=== PATIENT | female | born 1980 | race Caucasian/White ===

== ENCOUNTER 2022-06-23 08:37 | Emergency (ER) | payer MEDICAID, SELFPAY ==
[2022-06-23 08:48] VITALS: BP 100/64; PULSE 98; RESP 18; TEMP 36.6; O2SAT 97; BMI 23.5
--- NOTE | 2022-06-23 08:59 | ED.GENADULT ---
HPI - General Adult General Time Seen by Provider: 09:00 Date Seen: 06/23/22 Chief complaint: Dental/Oral/Mouth Injury/Pain Stated complaint: Sore throat Time Seen by Provider: 06/23/22 08:54 Source: patient Mode of arrival: ambulatory Limitations: no limitations History of Present Illness HPI narrative: Smiley is a 41-year-old female past medical history of migraines who presents emerged department with a sore throat difficulty swallowing. patient states that over the last 2 days she has had increased throat pain, she knows redness and swelling in the back of her throat, also exudate. She has a typical migraine bilateral temporal behind her eyes, associated nausea but no vomiting, she took her usual migraine medication with no relief, she denies any fevers or chills, her nephew had strep throat, but she was not around him. She did have strep when she was young child. She denies any cough, chest pain or shortness of breath, she denies any abdominal complaints, she is eating and drinking normally but difficulty with swallowing, she has not had any drooling. she denies any fatigue, she was trying to go to work this morning when came to the emergency department. she does smoke 3-4 cigarettes per day Related Data Previous Rx's Medication Instructions Recorded amoxicillin 875 mg tablet 875 mg PO BID 10 days #20 tabs 06/23/22 Allergies Allergy/AdvReac Type Severity Reaction Status Date / Time Sulfa (Sulfonamide Allergy Verified 06/23/22 08:47 Antibiotics) Review of Systems Status of ROS: Reports: 10 or more systems reviewed and unremarkable except as noted in History and below PFSH PFSH Social History Smoking Status: Never smoker Do you use any of these nicotine containing products: None Second hand tobacco smoke exposure: No How often do you have a drink containing alcohol: never How often do you have six or more drinks on one occasion: Never AUDIT-C Alcohol total score: 0 Non-prescribed substance use: denies use service: No Exam Narrative: Exam Narrative: general: no obvious distress sitting comfortably HEENT: tympanic membranes within normal limits oropharynx shows post or pharyngeal erythema, swollen tonsillar pillars, bilateral exudate, no abscess. bilateral submandibular adenopathy no meningeal signs lungs: clear to auscultation bilaterally heart: normal sinus rhythm S1-S2 muscle skeletal: moving upper lower extremities with no difficulty abdomen: soft nontender neuro: alert awake and oriented x3 Const: Vital Signs, click to edit/add: Vital Signs - 24 hr 06/23/22 08:48 Temperature 98 F Pulse Rate [Pulse Oximeter] 98 Respiratory Rate 18 Blood Pressure [Ri ght Upper Arm] 100/64 Pulse Oximetry 97 Oxygen Delivery Me thod Room Air Course Reevaluation(s) Reevaluation #1: 9:00 AM: AIDET performed. vitals are normal, workup will include COVID/influenza/ RSV swab will also obtain rapid strep PCR, 60 mg IM Toradol and 40 mg oral prednisone for her pain. Reevaluation #2: Patient updated on her positive rapid strep results, she is feeling better after above care given, plan would be to discharge prescription for amoxicillin 875 mg b.i.d. over the next 10 days, she should continue with Motrin 600-800 mg every 4-6 hours as needed for pain, follow-up with primary care provider as needed over the next 7-10 days, return if worsening symptoms. Time: 11:22 Vital Signs Vital signs: Initial Vital Signs Temperature 98 F 06/23/22 08:48 Temperature Source Temporal Artery Scan 06/23/22 08:48 Pulse Rate 98 06/23/22 08:48 Pulse Rhythm 06/23/22 08:48 Respiratory Rate 18 06/23/22 08:48 Blood Pressure 100/64 06/23/22 08:48 Blood Pressure Mean 76 06/23/22 08:48 Blood Pressure Position Supine 06/23/22 08:48 Pulse Oximetry 97 06/23/22 08:48 Oxygen Delivery Method 06/23/22 08:48 Vital Signs Temperature 98 F 06/23/22 08:48 Pulse Rate 98 06/23/22 08:48 Respiratory Rate 18 06/23/22 08:48 Blood Pressure 100/64 06/23/22 08:48 Pulse Oximetry 97 06/23/22 08:48 Oxygen Delivery Method 06/23/22 08:48 Temperature 98 F 06/23/22 08:48 Pulse Rate 98 06/23/22 08:48 Respiratory Rate 18 06/23/22 08:48 Blood Pressure 100/64 06/23/22 08:48 Pulse Oximetry 97 06/23/22 08:48 Oxygen Delivery Method 06/23/22 08:48 Medical Decision Making Lab Data Labs: Lab Results 06/23/22 06/23/22 06/23/22 Range/Units 09:25 09:25 09:25 SARS-CoV-2 (PCR) Negative SARS-CoV-2 (Negative) Influenza Type A (PCR) Negative PCR FLU A (Negative) Influenza Type B (PCR) Negative PCR FLU B (Negative) RSV (PCR) Negative PCR RSV (Negative) Group A Strep Rapid Cancelled Group A Strep DNA DETECTED A (Not Detectd) Discharge Plan Discharge Clinical Impression: Strep pharyngitis Patient Disposition: Home, Self-Care Condition: Improved Instructions: Strep Throat (ED) Additional Instructions: Amoxicillin 875 mg twice daily over the next 10 days, to continue with 600-800 mg Motrin every 4-6 hours as needed for pain, follow-up with primary care provider over the next 7-10 days, return if worsening symptoms. Activity Level: No Restrictions Prescriptions: New amoxicillin 875 mg tablet 875 mg PO BID 10 Days Qty: 20 0RF Follow Up/Referrals: Trisha Kuo CNP [Primary Care Provider] - Stand Alone Forms: [employer] Info Instructions
[2022-06-23] MEDS: predniSONE 20 MG TABLET 40 MG PO (09:16)
[2022-06-23] MEDS: KETOROLAC 30 MG/ML inj 60 MG IM (09:16)
--- OUTSIDE RECORDS SUMMARY | 2022-06-23 10:11 | XMS_ITS | Encounter Summary ---
:1980 Author Organization [facility] Address [address] [place] [address] Care Team Providers Name Role Phone Cleopatra Veliz M.D. Primary Care Provider + [phone] Reason for Visit Reason Comments COVID Nurse Line Encounter Details Date Type Department Care Team Description 12/03/2019 Clinical Communication Division of Gilda Lin Nurse Line [facility] Internal Rowdy, Rowdy.S.NGalileo, Medicine, Jose De León, C.C.T.CGalileo [address] [address] [place] [address] [place], [place] (Work) [phone] Social History Tobacco Use Types Packs/Day Years Used Date Smoking Tobacco: Every Day Sex Assigned at Date Recorded Not on file documented as of this encounter Miscellaneous Notes Telephone Encounter - Gilda Lin R.N., C.C.T.C. - 12/03/2019 2:07 PM CDT COVID-19 Nurse Line Screening ASSESSMENT COVID 19 Screening Have you had close contact with a person who has a LABORATORY CONFIRMED case of COVID-19?: No - Continue screening. In the last 48 hours have you had any of the following symptoms?: New myalgias (muscle aches)(Leg cramps, chest heaviness) Do you have any urgent symptoms?: None- Patient meets criteria for testing. PLAN Endpoint recommendation: Screening positive, testing indicated, advised to be swabbed for COVID-19, sent to [place], [place] Care Points provided: STANDARD PRECAUTIONS FOR ALL PATIENTS: Wash hands often with soap and water for at least 20 seconds, especially after blowing your nose, coughing, sneezing, or having been in a public place. If soap and water aren't available, use a hand peoplesoft financial developer that contains at least 60% alcohol. Avoid close contact with anyone who may be exhibiting respiratory symptoms such as coughing and sneezing. Avoid touching your eyes, nose and mouth. Clean and disinfect frequently touched surfaces daily. Cover your mouth and nose with a cloth face cover when around others or in public. The cloth face cover is not a substitute for social distancing. Continue to keep about 6 feet between yourself andothers. Stay home as much as possible (only going out for essential items or medical care). Educational Resource: https://www.cdc.gov/coronavirus/2019-ncov/qgictlr-calyztr-ynrt/index.html RECOMMENDATIONS TESTING CRITERIA IS MET: Stay home except to get medical care. Avoid public areas(do not go to work, school, etc). Avoid public transportation, riding sharing (if possible) or taxis. Stay in a specific sick room if possible and away from other people and pets in your home. Use a s eparate bathroom if possible. Wear a cloth face covering, over your nose and mouth if you must be around other people even at home). Contact employer/occupational health department to notify them that they are being tested. If patient is living with a high risk family member, seek medical advice from their primary care provider. *High risk includes family member with heart of lung disease (e.g. asthma, COPD), immunosuppression (e.g. cancer, HIV/AIDS), women, or 65 years and older. Go to [facility] emergency department if any of the following occur: 1) New shortness of breath at rest, 2) Pain, pressure or tightness unrelated to coughing in the chest, jaw or arm, 3) Newly confused or unable to stay alert and awake. Notify primary care provider if any new or worsening symptoms. Education Resources: https://www.cdc.gov/coronavirus/2019-ncov/xp-zbz-apf-sick/kkacu-gssi-zkzg.html SELF CARE FOR ALL PATIENTS: In these stressful times, it is important to take care of your mental health as well as your physical health. Take breaks from watching, reading, or listening to news stories. It can be upsetting to hear about the crisis and see images repeatedly. Make time to unwind. Try to do some other activities you enjoy. Connect with others. Talk with people you trust about your concerns and how you are feeling. Be creative in keeping connected with loved ones. Develop a plan for your day. Shower, get dressed, have a routine. Structure in productive tasks as well as leisure time. Try healthy coping strategies such as meditation, relaxation, exercise, healthy eating habits, and avoid alcohol and drugs. Maintain a consistent sleep schedule. Keep sleep area and work areas separate. Education: patient/caregiver Patient/caregiver able to teach back Patient agreeable to plan of care: Yes The following references were used: [facility] novel coronavirus (COVID- 19) resources Evelio Telephone Triage Protocols for Nurses Nursing judgement documented in this encounter Plan of Treatment Not on filedocumented as of this encounter Visit Diagnoses Not on filedocumented in this encounter Care Teams Banquet Coordinator Relationship Specialty Start Date End Date Cleopatra Veliz M.D. PCP - General 02/04/18 09/17/[address] [address] documented as of this encounter
--- OUTSIDE RECORDS SUMMARY | 2022-06-23 10:11 | XMS_ITS | Encounter Summary ---
:1980 Author Organization [facility] Address [address] [place] [address] Care Team Providers Name Role Phone Elsewhere, Pcp Primary Care Provider Unavailable Reason for Referral Outpatient (Routine) - Authorized Specialty Diagnoses / Procedures Referred By Contact Refer red To Contact Diagnoses Preplacement Exam Rachel Melchor P.A.-C. [facility] Procedures OCC Drug screening [address] [place] [address] Referral ID Status Reason Start Date Expiration Date Visits V isits Requested Authorized [id number] Authorized 04/21/2022 04/21/2023 1 1 Reason for Visit Reason Comments Drug Screen Nurse Visit Appointment Request (Routine) - Closed Specialty Diagnoses / Procedures Referred By Contact Refer red To Contact Occupational Medicine Referral ID Status Reason Start Date Expiration Date Visits Requ ested Visits Authorized [id number] Closed 04/19/2022 04/19/2023 1 Encounter Details Date Type Department Care Team Description 04/21/2022 Clinical Support Department of [facility], Preplaceme nt Exam Occupational Trisha Be, (Primary Dx) Medicine in [place], [place] [address] [place] [phone] Social History Tobacco Use Types Packs/Day Years Used Date Smoking Tobacco: Every Day Sex Assigned at Date Recorded Not on file documented as of this encounter Plan of Treatment Scheduled Orders Name Type Priority Associated Diagnoses Order S chedule OCC Drug screening Procedures Routine Preplacement Exam Orde red: 04/21/2022 documented as of this encounter Visit Diagnoses Diagnosis Preplacement Exam - Primary documented in this encounter Care Teams Heel Seat Sander Relationship Specialty Start Date End Date Elsewhere, Pcp PCP - General Family Medicine 01/06/21 documented as of this encounter
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
--- OUTSIDE RECORDS SUMMARY | 2022-06-23 10:11 | XMS_ITS | Clinical Summary ---
:1980 Author Organization [facility] Address [address] [place] [address] Care Team Providers Name Role Phone Elsewhere, Pcp Primary Care Provider Unavailable Source Comments Patient records contain information from all sites at [facility]. For routine questions regarding patient records, call [phone] during business hours, M-F 8:00 AM - 5:00 PM Central Time. Record requests for emergency care only can be directed to [phone] at any time.[facility] Encounters Date Type Specialty Care Team Description 04/21/2022 Clinical Support Occupational [place] Sun t Exam Medicine Trisha Be (Primary Dx) L.P.N. from Last 3 Months Family History Medical History Relation Name Comments Lung cancer Grandmother maternal Osteoarthritis Mother Relation Name Status Comments Grandmother maternal Mother Social History Tobacco Use Types Packs/Day Years Used Date Smoking Tobacco: Every Day Sex Assigned at Date Recorded Not on file Last Filed Vital Signs Vital Sign Reading Time Taken Comments Blood Pressure 104/60 08/17/2013 1:32 PM WASTE COLLECTOR Pulse 88 08/17/2013 1:32 PM WASTE COLLECTOR Temperature - - Respiratory Rate 16 08/17/2013 1:32 PM WASTE COLLECTOR Oxygen Saturation - - Inhaled Oxygen Concentration - - Weight 70.6 kg (155 lb 10.3 oz) 08/17/2013 1:32 PM WASTE COLLECTOR Height 167 cm (5' 5.75) 06/06/2012 10:02 AM CDT Body Mass Index 25.31 06/06/2012 10:02 AM CDT Plan of Treatment Health Maintenance Due Date Last Done Comments Cervical Cancer Screening 1980 HIV Screening 1980 Hepatitis B Vaccines (1 of 3 - 1980 3-dose series) Hepatitis C Screening 1980 Lipid (Cholesterol) Screening 1980 Mammogram 1980 COVID-19 Vaccine (#1) 04/29/1981 Pneumococcal vaccine (0-64 years) 1986 (1 - PCV) DTaP,Tdap,and Td Vaccines (1 - 10/28/1999 Tdap) Depression Screening (Annual 08/08/2021 PHQ-2) Influenza Vaccine (#1) 2022 HPV Vaccines Aged Out No longer eligib le based on patient's age to complete this topic Insurance Payer Benefit Plan Subscriber ID Effective Dates Phone Address Type / Group [facility] [facility] [id number] 2021-Presen [phone] [address] Medicaid HMO t 5 [place] [address] Care Teams Teacher Emotionally Impaired Relationship Specialty Start Date End Date Elsewhere, Pcp PCP - General Family Medicine 01/06/21
--- OUTSIDE RECORDS SUMMARY | 2022-06-23 10:11 | XMS_ITS | Encounter Summary ---
:1980 Author Organization [facility] Address [address] [place] [address] Care Team Providers Name Role Phone Octavio Dimas M.D. Primary Care Provider Encounter Details Date Type Department Care Team Description 12/09/2020 Orders Only [facility] PCP [facility] MNT Octavio Dimas S creening Mammogram M.DGalileo Breast Cancer [address] [place] [address] Social History Tobacco Use Types Packs/Day Years Used Date Smoking Tobacco: Every Day Sex Assigned at Date Recorded Not on file documented as of this encounter Plan of Treatment Not on filedocumented as of this encounter Visit Diagnoses Diagnosis Screening Mammogram Breast Cancer documented in this encounter Care Teams Cloth Mercerizer Back Tender Relationship Specialty Start Date End Date Octavio Dimas M.D. PCP - General 09/18/20 01/05/21 [address] [place] [id number] documented as of this encounter
--- OUTSIDE RECORDS SUMMARY | 2022-06-23 10:11 | XMS_ITS | Encounter Summary ---
:1980 Author Organization [facility] Address [address] [place] [address] Care Team Providers Name Role Phone Cleopatra Veliz M.D. Primary Care Provider + [phone] Reason for Visit Reason Comments COVID Nurse Line Encounter Details Date Type Department Care Team Description 12/24/2019 Clinical Express Care Abby Arboleda [place] se Line Communication Online Services in A, R.N. [place] [phone] [place] [address] (Work) [place] [address] Social History Tobacco Use Types Packs/Day Years Used Date Smoking Tobacco: Every Day Sex Assigned at Date Recorded Not on file documented as of this encounter Miscellaneous Notes Telephone Encounter - Abby Arboleda, R.N. - 12/24/2019 5:50 PM CDT COVID-19 Nurse Line Screening ASSESSMENT COVID 19 Screening Have you had close contact with a person who has a LABORATORY CONFIRMED case of COVID-19?: Yes - Continue screening. Is this close contact a household contact?: No- Continue screening In the last 48 hours have you had any of the following symptoms?: New myalgias (muscle aches) Do you have any urgent symptoms?: None- Patient meets criteria for testing. Patient also reports chest tightness, unsure if related to history of smoking. PLAN Endpoint recommendation: Screening positive, testing indicated, advised to be swabbed for COVID-19, sent to [place], [place], Self-isolation, quarantine at home and Home Care Care Points provided: STANDARD PRECAUTIONS FOR ALL PATIENTS: Wash hands often with soap and water for at least 20 seconds, especially after blowing your nose, coughing, sneezing, or having been in a public place. If soap and water aren't available, use a hand clam bed worker that contains at least 60% alcohol. Avoid [...] essential items or medical care). Educational Resource: https://www.cdc.gov/coronavirus/2019-ncov/sdlnirl-cpkynij-opor/index.html RECOMMENDATIONS TESTING CRITERIA IS MET: Stay home [...] or 65 years and older. Go to [facility] emergency department if any of the following occur: 1) New shortness of breath at rest, 2) Pain, pressure or tightness unrelated to coughing in the chest, jaw or arm, 3) Newly confused or unable to stay alert and awake. Notify primary care provider if any new or worsening symptoms. Education Resources: https://www.cdc.gov/coronavirus/2019-ncov/wq-kpm-yjq-sick/vzhae-cuhy-kvkx.html SELF CARE FOR ALL PATIENTS: In these [...] care: Yes The following references were used: [facility] novel coronavirus (COVID- 19) resources CDC web site https://www.cdc.gov/coronavirus/2019-ncov/summary.html Nursing judgement documented in this encounter Plan of Treatment Not on filedocumented as of this encounter Visit Diagnoses Not on filedocumented in this encounter Care Teams Fish Culturist Relationship Specialty Start Date End Date Cleopatra Veliz M.D. PCP - General 02/04/18 09/17/[address] [place] [phone] documented as of this encounter
--- OUTSIDE RECORDS SUMMARY | 2022-06-23 10:11 | XMS_ITS | Encounter Summary ---
:1980 Author Organization [facility] Address [address] [place] [address] Care Team Providers Name Role Phone Cleopatra Veliz M.D. Primary Care Provider + [phone] Reason for Referral Outpatient (Routine) - Closed Specialty Diagnoses / Procedures Referred By Contact Refer red To Contact Family Medicine GABINO Veliz SE, M.D. [address] [place] [phone] Referral ID Status Reason Start Date Expiration Date Visits Requ ested Visits Authorized [id number] Closed 04/10/2020 04/10/2021 1 1 Encounter Details Date Type Department Care Team Description 04/10/2020 Orders Only [facility] Sarita cheatham, Screening Lipid Anna Whelan [address] [place] [phone] (Wo rk) Social History Tobacco Use Types Packs/Day Years Used Date Smoking Tobacco: Every Day Sex Assigned at Date Recorded Not on file documented as of this encounter Plan of Treatment Scheduled Orders Name Type Priority Associated Diagnoses Order S chedule Lipid Panel Lab Routine Screening Lipid Expected: , Expires: 04/10/2023 Scheduled Referrals Name Type Priority Associated Diagnoses Order S chedule Family Medicine Outpatient Referral Routine Expec lázaro: office visit 04/24/2020, (clinic) Expires: 04/10/2023 documented as of this encounter Visit Diagnoses Diagnosis Screening Lipid documented in this encounter Care Teams Receiving Tank Operator Relationship Specialty Start Date End Date Cleopatra Veliz M.D. PCP - General 02/04/18 09/17/[address] [phone] documented as of this encounter
--- OUTSIDE RECORDS SUMMARY | 2022-06-23 10:11 | XMS_ITS | Encounter Summary ---
:1980 Author Organization [facility] Address [address] [place] [address] Care Team Providers Name Role Phone Cloepatra Veliz M.D. Primary Care Provider + [phone] Reason for Visit Reason Onset Date Comments Outpatient COVID-19 Testing Outpatient COVID-19 Testing 12/25/2019 Encounter Details Date Type Department Care Team Description 12/25/2019 External Outreach Department of Lesly Mata Infect ion [facility] Internal Medicine in [facility] C.N.P., Respir ator (Primary [place] D.N.P., M.S.N. Dx) [address] [place] [phone] Social History Tobacco Use Types Packs/Day Years Used Date Smoking Tobacco: Every Day Sex Assigned at Date Recorded Not on file documented as of this encounter Progress Notes Smiley Tran RRyanne - 12/25/2019 9:38 AM CDT Encounter created for the drive-through COVID-19 testing. documented in this encounter Miscellaneous Notes Result Encounter Note - Smiley Mitchell - 12/27/2019 8:29 AM CDT Result Letter sent to patient with negative COVID-19 result. documented in this encounter Plan of Treatment Not on filedocumented as of this encounter Procedures Procedure Name Priority Date/Time Associated Comments Diagnosis SARS CORONAVIRUS 2 Routine 12/25/2019 5:16 PM Res ults for this PCR DETECT, V CDT procedure are in the results section. documented in this encounter Results SARS Coronavirus 2 RNA Detection (12/25/2019 5:16 PM CDT) [facility] Method Time Signature SARS-CoV-2 Swab, 12/26/2019 [facility] Specimen Nasopharynx 10:58 PM Source CDT SARS-CoV-2 Undetected Undetected 12/26/2019 [facility] RNA by PCR 10:58 PM CDT Comment: SARS-CoV-2 RNA absent. This result does not rule out COVID-19 in the patient, as the sensitivity of the test depends o n the timing of the specimen collection and the quality of the specim en. Result should be correlated with patient's history and clinical presentat ion. ----ADDITIONAL INFORMATION---- This test using the stephanie SARS-CoV-2 ass ay ([employer] performed on the stephanie 6800 System has r eceived Emergency Use Authorization (EUA) by the U.S. Food and Drug Administ ration, and is modified from the permit agent's instructions with a bridg ing study. Performance characteristics were verified by [facility] inic in a manner consistent with CLIA requirements. Fact sheets for this Emergency Use Autho rization (EUA) assay can be found at the following links: For Healthcare Providers: https://www.fd a.gov/media/753980/download For Patients: https://www.fda.gov/media/ 239619/download Specimen Anatomical Collection Method Collection Time Receive d Time (Source) Location / / Volume Laterality Varies 12/25/2019 5:16 PM 0 9:29 CDT PM CDT Lesly Mata APRN, C.N.P., D.N.P., M.S.N. LAB MICROBI OLOGY - GENERAL ORDERABLES Performing Organization Address City/State/ZIP Code Phon e Number [facility] [address] [place] [address] [facility] [place] [address] Laboratory Medicine and Pathology [address] MCGRATH documented in this encounter Visit Diagnoses Diagnosis Infection Upper Respiratory - Primary documented in this encounter Additional Health Concerns Infection Onset Date Last Indicated Resolved Time COVID19 Pending 12/25/2019 12/25/2019 12/26/2019 10:58 PM CDT documented as of this encounter Care Teams Post Production Assistant Relationship Specialty Start Date End Date Cleopatra Veliz M.D. PCP - General 02/04/18 09/17/200 [address], [place] [phone] documented as of this encounter
--- OUTSIDE RECORDS SUMMARY | 2022-06-23 10:11 | XMS_ITS | Encounter Summary ---
:1980 Author Organization [facility] Address [address] [place] [address] Care Team Providers Name Role Phone Cleopatra Veliz M.D. Primary Care Provider + [phone] Reason for Visit Reason Onset Date Comments Outpatient COVID-19 Testing 12/03/2019 Encounter Details Date Type Department Care Team Description 12/03/2019 External Outreach Department of Giuseppe Bunch Infectio n [facility] Medicine, D.OGalileo Respiratory (Primary [facility] [id number] [place] [address] Dr Ramos) [place], [place] [address] [address] [place], [place] [phone] (Work) [phone] Social History Tobacco Use Types Packs/Day Years Used Date Smoking Tobacco: Every Day Sex Assigned at Date Recorded Not on file documented as of this encounter Progress Notes Giuseppe Bunch D.O. - 12/03/2019 2:24 PM CDT Encounter created for the drive-through COVID-19 testing. documented in this encounter Plan of Treatment Not on filedocumented as of this encounter Procedures Procedure Name Priority Date/Time Associated Diagnosis Comme nts SARS CORONAVIRUS-2, Routine 12/03/2019 4:38 PM Infection Upper Results for this PCR CDT Respiratory procedure are i n the results section. documented in this encounter Results SARS Coronavirus-2, PCR (12/03/2019 4:38 PM CDT) Patholo gist Method Time Signature SARS Swab, 12/04/2019 [facility] Coronavirus-2 Nasopharynx 11:44 AM Source CDT SARS Undetected Undetected 12/04/2019 [facility] Coronavirus-2 11:44 AM , PCR CDT Comment: SARS-CoV-2 RNA absent. This result does not rule out COVID-19 in the patient, as the sensitivity of the test depends o n the timing of the specimen collection and quality of the specimen. Result should be correlated with patient's history and clinical presentat ion. ----ADDITIONAL INFORMATION---- This test was developed and its performa nce characteristics determined by [facility] in a manner co nsistent with CLIA requirements. Independent review by the U.S. Food and Drug Administration is pending. Visit the CDC website: https://www.cdc.gov/coronavirus/ ?? for the most recent guidelines on Velazquez virus testing. Fact Sheet for Healthcare Providers: (https://www.[employer]/it-mmfil es/ Provider_Fact_Sheet_for_[facility]_COVI D-19.pdf) Fact Sheet for Patients: (https://www.[employer]/it-mmfil es/ Patient_Fact_Sheet_for_COVID-19.pdf) Specimen Anatomical Collection Method Collection Time Receive d Time (Source) Location / / Volume Laterality Varies 12/03/2019 4:38 PM 0 6:21 (Nasopharynx) CDT PM CDT Giuseppe Bunch D.O. LAB MICROBIOLOGY - GENERAL O RDERABLES Performing Organization Address City/State/[facility] Code Phon e Number [facility] - [address] [place], [place] [address] [facility] [place] [address] [facility] [address] documented in this encounter Visit Diagnoses Diagnosis Infection Upper Respiratory - Primary documented in this encounter Additional Health Concerns Infection Onset Date Last Indicated Resolved Time COVID19 Pending 12/03/2019 12/03/2019 12/04/2019 11:45 AM CDT documented as of this encounter Care Teams Promotions Specialist Relationship Specialty Start Date End Date Cleopatra Veliz M.D. PCP - General 02/04/18 09/17/20 [address] [place] [phone] documented as of this encounter
--- OUTSIDE RECORDS SUMMARY | 2022-06-23 10:11 | XMS_ITS | Encounter Summary ---
:1980 Author Organization [facility] Address [address] [place] [address] Care Team Providers Name Role Phone Octavio Dimas M.D. Primary Care Provider Encounter Details Date Type Department Care Team Description 11/25/2020 Orders Only [facility]N PCP [facility] Sa migel Gaspar M.D. [address] [place] [phone] (Wo rk) Social History Tobacco Use Types Packs/Day Years Used Date Smoking Tobacco: Every Day Sex Assigned at Date Recorded Not on file documented as of this encounter Plan of Treatment Not on filedocumented as of this encounter Visit Diagnoses Not on filedocumented in this encounter Care Teams Acid Concentrator Relationship Specialty Start Date End Date Octavio Dimas M.D. PCP - General 09/18/20 01/05/[address] [place] [phone] documented as of this encounter
--- OUTSIDE RECORDS SUMMARY | 2022-06-23 10:12 | XMS_ITS | Encounter Summary ---
:1980 Author Organization [facility] Address [address] [place] [address] Care Team Providers Name Role Phone Unavailable Primary Care Provider Unavailable Encounter Details Date Type Department Care Team Description 06/06/2012 Hospital Encounter [facility] Gabbie Hebert M.D. [address], [address] [place], [place] [address] (Wo rk) Social History Tobacco Use Types Packs/Day Years Used Date Smoking Tobacco: Never Assessed Sex Assigned at Date Recorded Not on file documented as of this encounter Last Filed Vital Signs Vital Sign Reading Time Taken Comments Blood Pressure 98/62 06/06/2012 10:02 AM CDT Pulse 64 06/06/2012 10:02 AM CDT Temperature - - Respiratory Rate 20 06/06/2012 10:02 AM CDT Oxygen Saturation - - Inhaled Oxygen Concentration - - Weight 72.4 kg (159 lb 9.8 oz) 06/06/2012 10:02 AM CDT Height 167 cm (5' 5.75) 06/06/2012 10:02 AM CDT Body Mass Index 25.96 06/06/2012 10:02 AM CDT documented in this encounter Progress Notes Melinda Hebert M.D. - 06/06/2012 9:49 AM CDT [id number] CHIEF COMPLAINT/REASON FOR VISIT Acne. HISTORY OF PRESENT ILLNESS Smiley is a new patient to our clinic, 31 years old, here today for acne. She has had acne since she was a teenager, she has never been on any prescription topical or oral medication for this. Her break outs are worse after her menses. Sometimes she has itching and deep cystic lesions. She does havesome scarring. Currently is using an acne stress Neutrogena product to wash her face. She does not have a regular primary care provider. CURRENT MEDICATIONS Please see EMR. ALLERGIES Please see EMR. SYSTEMS REVIEW All systems reviewed and negative. PAST MEDICAL/SURGICAL HISTORY Please see EMR. SOCIAL HISTORY Please see EMR. FAMILY HISTORY Please see EMR. VITAL SIGNS Please see EMR. PHYSICAL EXAM GENERAL: Well appearing female SKIN: Papular pustular type acne on the cheeks mainly and chin. She also has some open comedone formation on her nose. Nothing on chest back or arms. IMPRESSION/REPORT/PLAN 1. Acne. Discussed washing her face patting dry applying thin layer of clindamycin over the entire face. At night tretinoin 0.025% cream every other night and nightly after 2 weeks if able. She can add in 10% benzoyl peroxide wash twice weekly start Minocin 100 mg once a day side effects discussed recheck in 2 to 3 months here. 2. Migraines. Recommended she keep a record of her headaches from a month recording how severe theyare what she took any triggers and where she felt them. That she should bring this back with one of her primary care physician's or myself to have a visit regarding her migraines. Melinda Hebert M.D./brett Electronically Signed By: MELINDA HEBERT MD On: 06/07/2012 03:47 PM Source: [facility] MHSDOLBEYNONRADSYS Document Id: [id number] documented in this encounter Miscellaneous Notes Miscellaneous - Kaia Levy R.N. - 08/03/2013 8:56 AM CST Medication Refill Msg Document Contains Addenda Addendum by KAIA LEVY on 03 August 2013 10:19:06 RESOURCE EFFICIENCY MANAGER Phone call to patient with no answer. Left message for patient to make appointment. Number was given. Addendum by MELINDA HEBERT MD on 03 August 2013 10:04:08 RESOURCE EFFICIENCY MANAGER From: MELINDA HEBERT MD To: KAIA LEVY; Sent: 08/03/2013 10:04:08 RESOURCE EFFICIENCY MANAGER Subject: Med Management Submitted: Order:tretinoin topical (tretinoin 0.025% topical cream) 1 wellington Topical Bedtime Qty: 20 gm Duration: 30 day(s) Refills: 0 Substitutions Allowed Route To Pharmacy - [facility] [place] Signed by MELINDA HEBERT MD 08/03/2013 10:03:33 Submitted: Order:clindamycin topical (clindamycin 1% topical lotion) 1 wellington Topical Daily AM Qty: 60 mL Duration: 30 day(s) Refills: 0 Substitutions [facility] [place] Signed by MELINDA HEBERT MD 08/03/2013 10:03:32 Needs appt for yearly recheck. I can refill the topicals x 1 but no more refills until seen. No oralmeds until seen- usually we take a med break anyways. From: KAIA LEVY To: MELINDA HEBERT MD; Sent: 08/03/2013 08:56:37 RESOURCE EFFICIENCY MANAGER Subject: Medication Refill Msg Caller is: ( ) Patient ( ) Mother ( ) Father ( ) Spouse ( ) Daughter ( ) Son ( Terry/Joan ) Pharmacy ( ) Other: Provider: Anup Pharmacy: Name of Medications Needing Refill: Minocycline 100 mg Last Refill Date: 06/06/12 qty 30 Additional Information: take 1 daily Name of Medications Needing Refill: Tretinoin 0.025% cream Last Refill Date: 06/06/12 qty 45 Additional Information: apply topically at bedtime Name of Medications Needing Refill: clindamycin phosphate 1% lotion Last Refill Date: 06/06/12 qty 60 Additional Information: apply topically every morning Last / Future Appointment:last appt 06/06/12, no show on 06/27/13 Disposition: ( x ) Send to Pharmacy ( ) Call to Pharmacy ( ) Patient will order picker Script ( ) Mail Rxto Patient Source: [facility] POWERCHART Document Id: [id number] Felishacelltree - Melinda Hebert M.D. - 06/06/2012 10:46 AM CDT Ambulatory Patient Summary [address] [address] Visit Information Name: SMILEY DONOHUE Current Date: 06/06/2012 10:46:40 Physicians Attending Provider: MELINDA HEBERT MD Primary Care Provider: PCP, UNASSIGNED Your Medications Here is a list of your medications. It is important to take your medications as directed. Use a pillbox or chart to help remind you to take your medications. Please let your doctor or nurse know if you have problems taking your medications. Medication/Strength Dose Route Frequency Indications/Special Instructions/Comments minocycline (Minocin 100 mg oral capsule) 100 mg Oral once a day clindamycin topical (clindamycin 1% topical lotion) 1 wellington Topical once a day (in the morning) tretinoin topical (tretinoin 0.025% topical cream) 1 wellington Topical once a day (at bedtime) Attention: If you have any medications at home that are not on this list, DO NOT take them until youcontact your provider for clarification. Your Allergies & Intolerances Substance Reaction Symptoms Category Comments sulfa drugs Drug Your Problem List Problem Status Onset Comments Tobacco use Active Headache Migraine Active Acne NOS Active Your Upcoming Appointments Date Time Location Reason Provider No Appointments found Your Goals/Additional instructions: -Acne plan: AM: Wash face, pat dry and apply thin layer of Clindalotion over entire face (not a spot treatment) PM: tretinoin 0.025% cream applied same way at night (start with every other night, and then up to nightly after 2 weeks if able). Also may use 10% benzoyl peroxide wash twice weekly. Start 100 mg minocin daily. Recheck in 3 months Source: [facility] POWERCHART Document Id: [id number] Miscellaneous - Melinda Hebert M.D. - 06/06/2012 10:46 AM CDT Ambulatory Depart Summary [address] [address] Visit Information Name: SMILEY DONOHUE Visit Date: 06/06/2012 10:46:39 Attending Provider: MELINDA HEBERT MD Primary Care Provider: PCP, UNASSIGNED SMILEY DONOHUE has been given the following list of medications: Your Medications It is important to take your medications as directed. Use a pill box or chart to help remind you to take your medications. Please let your doctor or nurse know if you have problems taking your medications. Medication/Strength Dose Route Frequency Indications/Special Instructions/Comments minocycline (Minocin 100 mg oral capsule) 100 mg Oral once a day clindamycin topical (clindamycin 1% topical lotion) 1 wellington Topical once a day (in the morning) tretinoin topical (tretinoin 0.025% topical cream) 1 wellington Topical once a day (at bedtime) Attention: If you have any medications at home that are not on this list, DO NOT take them until youcontact your provider for clarification. Additional Information: Source: [facility] POWERCHART Document Id: [id number] Miscellaneous - Meño Collins, L.P.N. - 06/06/2012 10:02 AM CDT Adult Pari Mutuel Ticket Cashier Intake/History Adult Pari Mutuel Ticket Cashier Intake/History Entered On: 06/06/2012 10:04 CDT Performed On: 06/06/2012 10:02 CDT by MEÑO COLLINS Intake Chief Complaint : break outs on the face that has been ongoing from teen years. Temperature Core : 36.6C(Converted to: 97.9DegF) Peripheral Pulse Rate : 64/min Respiratory Rate : 20/min Systolic Blood Pressure : 98mmHg Diastolic Blood Pressure : 62mmHg NIBP Mean : 74mmHg BP Location : Right upper extremity Blood Pressure Cuff Size : Regular Height : 167cm(Converted to: 5ft 6inch(es), 65.75inch(es)) Actual Weight : 72.4kg(Converted to: 159lb 10oz) Weight Source : Standing scale Dosing Weight Clinic : 72.40kg Clinic BSA : 1.83 Body Mass Index : 25.96kg/m2 MEÑO COLLINS - 06/06/2012 10:02 CDT Subjective Pain Symptoms : No MEÑO COLLINS - 06/06/2012 10:02 CDT Dependent Habits Tobacco Use/Currently Using : Yes Smoking Status : Current every day smoker MEÑO COLLINS - 06/06/2012 10:02 CDT Allergy Allergies (Active) sulfa drugs Estimated Onset Date: Unspecified ; Created By: MEÑO COLLINS; Reaction Status: Active ; Category: Drug ; Substance: sulfa drugs ; Type: Allergy ; Updated By: MEÑO COLLINS; Reviewed Date: 06/06/2012 10:02 CDT Source: [facility] POWERCHART Document Id: [id number] documented in this encounter Plan of Treatment Not on filedocumented as of this encounter Visit Diagnoses Not on filedocumented in this encounter
--- OUTSIDE RECORDS SUMMARY | 2022-06-23 10:12 | XMS_ITS | Encounter Summary ---
:1980 Author Organization [facility] Address [address] [place] [id number] Care Team Providers Name Role Phone Unavailable Primary Care Provider Unavailable Encounter Details Date Type Department Care Team Description 08/17/2013 Hospital Encounter HX [facility] Gabbie Hebert M.D. [id number] [place], [place] [address] (Wo rk) Social History Tobacco Use Types Packs/Day Years Used Date Smoking Tobacco: Never Assessed Sex Assigned at Date Recorded Not on file documented as of this encounter Last Filed Vital Signs Vital Sign Reading Time Taken Comments Blood Pressure 104/60 08/17/2013 1:32 PM LABEL FUSER TENDER Pulse 88 08/17/2013 1:32 PM LABEL FUSER TENDER Temperature - - Respiratory Rate 16 08/17/2013 1:32 PM LABEL FUSER TENDER Oxygen Saturation - - Inhaled Oxygen Concentration - - Weight 70.6 kg (155 lb 10.3 oz) 08/17/2013 1:32 PM LABEL FUSER TENDER Height - - Body Mass Index 25.31 06/06/2012 10:02 AM CDT documented in this encounter Progress Notes Melinda Hebert M.D. - 08/17/2013 1:25 PM CST [id number] CHIEF COMPLAINT / REASON FOR VISIT Roscoe is here today for acne and also follow up migraines. HISTORY OF PRESENT ILLNESS Roscoe is a 32-year-old female into the clinic today for recheck on meds for acne and migraines. As far as acne goes, she was using the clindamycin lotion in the morning and tretinoin 0.025% cream atbedtime as well as Minocin 100 mg a day and doing quite well. She has been out of her nighttime medsfor a little while now but was tolerating it well and probably could bump up to 0.05%. She does not have anything on the chest and back for acne, states that she has mild to moderate acne on her face, continues to have some open blackheads, had no side effects to the medication. Migraines. She mainly gets them behind her left eye. They are every couple weeks. She does have someneck tension with these headaches, especially on the right side. She does not experience relief withsleep. Lights bother her eyes with her headaches. She has not been keeping a headache journal. Symptoms are severe when she gets them and Advil Migraine does not help. MEDICATIONS Please see [facility] EMR. ALLERGIES Please see [facility] EMR. SYSTEMS REVIEW All systems reviewed and negative. PAST MEDICAL/SURGICAL HISTORY Please see [facility] EMR. SOCIAL HISTORY Please see [facility] EMR. FAMILY HISTORY Please see [facility] EMR. VITAL SIGNS Please see [facility] EMR. PHYSICAL EXAMINATION GENERAL: Well-appearing female. SKIN CHECK: She has mild papulopustular acne in the T-zone and cheeks. Also mild amount of open comedones on the nose, however, scarring and some ice pick scars on the cheeks. MUSCULOSKELETAL EXAM: She has pain at the right suboccipital ridge. EYES: Extraocular motions intact. PSYCHIATRIC: Alert, oriented, pleasant. Answers appropriate for questions. IMPRESSION/REPORT/PLAN 1. Acne - we will continue with clindamycin lotion in the morning, will increase from 0.025% tretinoin cream at bedtime to 0.05% cream. I will have her start this every other night for a couple of weeks. Then she will go up to nightly if tolerating it and skin not extremely red, itching or peeling. Wewill have her take doxycycline 100 mg once a day for 1 month only, then maintain on topicals. 2. Migraines - new prescription today sumatriptan 25 mg. We discussed it is very important to take this at the onset of the headache. We also discussed keeping a headache journal. Melinda Hebert M.D./mariza Electronically Signed By: MELINDA HEBERT MD On: 08/20/2013 11:28 AM Source: [facility] MHSDOLBEYNONRADSYS Document Id: [id number] L FUSER TENDER documented in this encounter Miscellaneous Notes Miscellaneous - Melinda Hebert M.D. - 08/17/2013 2:02 PM CST Ambulatory Patient Summary [id number] [facility] [place] [address] Visit Information Name: ROSCOE ECKERT [facility] Number: [id number] Current Date: 08/17/2013 14:02:21 Physicians Attending Provider: MELINDA HEBERT MD Primary Care Provider: PCP, UNASSIGNED - SERINA BURKSNN ROSCOE BARRETT has been given the following list of follow-up instructions, medication list, and patient education materials: Follow-up Instructions Your Medications Here is a list of your medications. It is important to take your medications as directed. Use a pillbox or chart to help remind you to take your medications. Please let your doctor or nurse know if you have problems taking your medications. Medication/Strength How to Take Indications/Special Instructions/Comments/Notes for Patient Medication Changes/Routing clindamycin topical (clindamycin 1% topical lotion) 1 [place], Topical, once a day (in the morning) Routed to [facility] [address] [place] [address] doxycycline (doxycycline hyclate 100 mg oral tablet) 1 Tablet(s), Oral, once a day [facility] [address] [place] [address] SUMAtriptan (Imitrex 25 mg oral tablet) 1 Tablet(s), Oral, as directed as needed for Migraine headache Take 1 tablet at onset of headache. Repeat after two hours if needed. New Routed to [facility] [address] [place] [address] tretinoin topical (tretinoin 0.05% topical cream) 1 [place], Topical, once a day (at bedtime) Routed to [facility] [address] [place] [address] Stop Taking the Following Medications: Medication list as of 08-17-13 14:02 Attention: If you have any medications at home that are not on this list, DO NOT take them until youcontact your provider for clarification. Give a copy of your medication list to your primary care provider. Update your medication list any time medications or doses are changed and carry your medication list at all times in case of emergency. Your Allergies & Intolerances Substance Reaction Symptoms Category Comments sulfa drugs Drug Your Problem List Problem Status Onset Comments Tobacco use Active Headache Migraine Active Acne NOS Active Your Upcoming Appointments Date Time Location Reason Provider No Appointments found Attention: Contact your local Clinic if further appointment detail needed. Your Goals/Additional instructions: 1. Keep headache journal, try new medication as soon as headachestarts. Source: [facility] Flex[employer] Document Id: [id number] L FUSER TENDER Miscellaneous - Melinda Hebert M.D. - 08/17/2013 2:02 PM CST Ambulatory Depart Summary [address] [address] Visit Information Name: KATHIA ECKERTIVAN DE LA GARZAY [facility] Number: [id number] Visit Date: 08/17/2013 14:02:19 Attending Provider: MELINDA HEBERT MD Primary Care Provider: PCP, UNASSIGNED - FB KATHIA ECKERTIVAN BARRETT has been given the following list of medications: Your Medications It is important to take your medications as directed. Use a pill box or chart to help remind you to take your medications. Please let your doctor or nurse know if you have problems taking your medications. Medication/Strength How to Take Indications/Special Instructions/Comments/Notes for Patient Medication Changes/Routing clindamycin topical (clindamycin 1% topical lotion) 1 wellington, Topical, once a day (in the morning) Routed to [facility] [address] [place] [address] doxycycline (doxycycline hyclate 100 mg oral tablet) 1 Tablet(s), Oral, once a day New Routed to [address] [id number] SUMAtriptan (Imitrex 25 mg oral tablet) 1 Tablet(s), Oral, as directed as needed for Migraine headache Take 1 tablet at onset of headache. Repeat after two hours if needed. New Routed to [address] [address] tretinoin topical (tretinoin 0.05% topical cream) 1 wellington, Topical, once a day (at bedtime) Routed to [address] [address] Stop Taking the Following Medications: Medication list as of 08-17-13 14:02 Attention: If you have any medications at home that are not on this list, DO NOT take them until youcontact your provider for clarification. Give a copy of your medication list to your primary care provider. Update your medication list any time medications or doses are changed and carry your medication list at all times in case of emergency. Additional Information: Source: [facility] POWERCHART Document Id: [id number] L FUSER TENDER Miscellaneous - Colleen Collins, L.P.N. - 08/17/2013 1:32 PM CST Adult Supervisor Specialty Plant Intake/History Adult Supervisor Specialty Plant Intake/History Entered On: 08/17/2013 13:34 LABEL FUSER TENDER Performed On: 08/17/2013 13:32 LABEL FUSER TENDER by COLLEEN COLLINS Intake Chief Complaint : acne visit Temperature Core : 36.4 DegC(Converted to: 97.5 DegF) (LOW) Peripheral Pulse Rate : 88 /min Respiratory Rate : 16 /min Systolic Blood Pressure : 104 mmHg Diastolic Blood Pressure : 60 mmHg NIBP Mean : 75 mmHg Actual Weight : 70.6 kg(Converted to: 155 lb 10 oz) Weight Source : Standing scale Dosing Weight Clinic : 70.6 kg COLLEEN COLLINS - 08/17/2013 13:32 LABEL FUSER TENDER General Info Languages : Trinidadian COLLEEN COLLINS - 08/17/2013 13:32 LABEL FUSER TENDER Subjective Pain Symptoms : No COLLEEN COLLINS - 08/17/2013 13:32 LABEL FUSER TENDER Dependent Habits Tobacco Use/Currently Using : Yes Smoking Status : Current every day smoker COLLEEN COLLINS - 08/17/2013 13:32 LABEL FUSER TENDER Tobacco Use Grid Cigarette Use Packs/Day : 0.5 COLLEEN COLLINS - 08/17/2013 13:32 LABEL FUSER TENDER [facility] Document Id: [id number] LABEL FUSER TENDER!22 L FUSER TENDER documented in this encounter Plan of Treatment Not on filedocumented as of this encounter Visit Diagnoses Not on filedocumented in this encounter
[2022-06-23 11:02] LABS: PCR FLU A Negative PCR FLU A (Negative); PCR FLU B Negative PCR FLU B (Negative); PCR RSV Negative PCR RSV (Negative)
[2022-06-23 11:03] LABS: SARS PCR* Negative SARS-CoV-2 (Negative)
[2022-06-23 11:06] LABS: Strep A DNA Probe* DETECTED (Not Detectd)
== END 2022-06-23 11:34 | disposition home or self-care (01) ==
PROVIDERS: Emergency Provider Student in an Organized Health Care Education/Training Program; PCP Nurse Practitioner Family
DX: J05.0 Acute obstructive laryngitis [croup] (principal)
CPT/HCPCS: 87502; 87634; 87635; 87651; 96372; 99283; 99284; J1885; J7512

== ENCOUNTER 2023-02-13 19:40 | Emergency (ER) | payer MEDICAID, SELFPAY ==
[2023-02-13 20:08] VITALS: BP 112/78; PULSE 88; RESP 16; TEMP 37; O2SAT 98; BMI 24.3
--- NOTE | 2023-02-13 20:12 | ED_ITS ---
HPI - General Adult General Time Seen by Provider: 20:13 Date Seen: 02/13/23 Chief complaint: Back Injury/Pain Stated complaint: Lower left back pain, walking/sitting is painful Time Seen by Provider: 02/13/23 19:41 Source: patient and RN notes reviewed Mode of arrival: ambulatory Limitations: no limitations History of Present Illness HPI narrative: Smiley is a 42-year-old female coming in with complaint left low back pain, does go across her right a bit and goes down into her left buttock, down the left back inside of her leg to about the knee. This started tonight, she had just carried a bag with minimal weight. She has had no trauma, no fevers chills, no history of cancer. Denies any weakness. It does hurt to sit and stand at this point. There is no bowel or bladder dysfunction, no numbness tingling of her lower extremities. Related Data Home Medications Medication Instructions Recorded Confirmed buprenorphine HCl 300 mcg buccal 300 mcg buccal BID chronic pain 02/13/23 02/13/23 film (Belbuca) ibuprofen 600 mg tablet 600 mg PO Q6H PRN pain 02/13/23 02/13/23 oxycodone-acetaminophen 10 mg-325 1 tab PO Q4-6H PRN chronic pain 02/13/23 02/13/23 mg tablet propranolol 10 mg tablet 10 mg PO DAILY 02/13/23 02/13/23 rimegepant 75 mg disintegrating 75 mg PO DAILY PRN migraine 02/13/23 02/13/23 tablet (Nurtec ODT) Previous Rx's Medication Instructions Recorded amoxicillin 875 mg tablet 875 mg PO BID 10 days #20 tabs 06/23/22 Allergies Allergy/AdvReac Type Severity Reaction Status Date / Time Sulfa (Sulfonamide Allergy Verified 06/23/22 08:47 Antibiotics) Review of Systems Narrative: As per HPI PFSH PFSH Social History Smoking Status: Never smoker Do you use any of these nicotine containing products: None Second hand tobacco smoke exposure: No How often do you have a drink containing alcohol: never How often do you have six or more drinks on one occasion: Never AUDIT-C Alcohol total score: 0 Non-prescribed substance use: denies use service: No Exam Const: Vital Signs, click to edit/add: Vital Signs - 24 hr 02/13/23 20:08 Temperature 98.6 F Pulse Rate [Left P ulse Oximeter] 88 Respiratory Rate 16 Blood Pressure [Ri ght Upper Arm] 112/78 Pulse Oximetry 98 Oxygen Delivery Me thod Room Air 42-year-old female lying on the bed with the head of the bed elevated about 30- 40 degrees when I come in. She is alert interactive in pleasant. She complains of paraspinous tenderness, left sciatic notch tenderness. There is no palpable deformity or masses in the back or spine. She has straight leg raise on the left, mild reciprocal on the right. Strength of her lower extremities is 5/5. Gait is slow but symmetric. Normal light touch sensation. No lower extremity edema. Documenting provider has reviewed patient's vital signs: yes Course Course Hospital Course: Reviewed with Smiley that her history and exam would be suggestive of a left radiculopathy. We discussed the nature and expectations for improvement. Will provider note to be out of work the next 2 days. We reviewed medication management. She is on narcotic pain management already. We did review that treatment for this is really responsive to anti-inflammatories which is why her pain medicines are not helping this alone. We will add in prednisone and a muscle relaxant for her. She can try some additional ibuprofen as long as her stomach tolerates. She can not stay in her baseline narcotic pain management regimen. Imaging is not indicated at this time, no red flags or warning signs. We did discuss that if there is bowel or bladder dysfunction or motor loss/weakness, did need to be re-evaluated. Likewise, if this is not improving, she can talk to her primary care provider regarding imaging. Vital Signs Vital signs: Initial Vital Signs Temperature 98.6 F 02/13/23 20:08 Temperature Source Temporal Artery Scan 02/13/23 20:08 Pulse Rate 88 02/13/23 20:08 Respiratory Rate 16 02/13/23 20:08 Blood Pressure 112/78 02/13/23 20:08 Blood Pressure Mean 89 02/13/23 20:08 Blood Pressure Position Sitting 02/13/23 20:08 Pulse Oximetry 98 02/13/23 20:08 Oxygen Delivery Method Room Air 02/13/23 20:08 Vital Signs Temperature 98.6 F 02/13/23 20:08 Pulse Rate 88 02/13/23 20:08 Respiratory Rate 16 02/13/23 20:08 Blood Pressure 112/78 02/13/23 20:08 Pulse Oximetry 98 02/13/23 20:08 Oxygen Delivery Method Room Air 02/13/23 20:08 Temperature 98.6 F 02/13/23 20:08 Pulse Rate 88 02/13/23 20:08 Respiratory Rate 16 02/13/23 20:08 Blood Pressure 112/78 02/13/23 20:08 Pulse Oximetry 98 02/13/23 20:08 Oxygen Delivery Method Room Air 02/13/23 20:08 Discharge Plan Discharge Clinical Impression: Lumbar radiculopathy Patient Disposition: Home, Self-Care Condition: Stable Instructions: Lumbar Radiculopathy (ED) Additional Instructions: Start prednisone and take as prescribed, take prednisone with food to help protect her stomach. If it isn't bothering he your stomach, can use ibuprofen per bottle directions for extra pain control. You already are on Percocet, can continue that as you have been. Have written for Flexeril which is a muscle relaxant, can have added of sedative properties. Take as prescribed. Do recommend follow-up with her clinic provider as soon as possible. Can try ice on your back initially. Activity as tolerated. Physical therapy can be beneficial for these types of problems, can get your referral from your primary care provider. Note provided to be off work the next 2 days. Activity Level: Activity as Tolerated Discharge Diet: Regular Prescriptions: No Action amoxicillin 875 mg tablet 875 mg PO BID 10 Days Qty: 20 0RF propranolol 10 mg tablet 10 mg PO DAILY oxycodone-acetaminophen 10-325 mg tablet 1 tab PO Q4-6H PRN (Reason: chronic pain) ibuprofen 600 mg tablet 600 mg PO Q6H PRN (Reason: pain) buprenorphine HCl [Belbuca] 300 mcg film 300 mcg BUCCAL BID Nurtec ODT 75 mg tablet,disintegrating 75 mg PO DAILY PRN (Reason: migraine) Follow Up/Referrals: Trisha Kuo CNP [Primary Care Provider] - Stand Alone Forms: MyHealth Info Instructions
--- OUTSIDE RECORDS SUMMARY | 2023-02-13 20:28 | XMS_ITS | Continuity of Care Document ---
Author Name Unknown Organization [facility] Address [address] [place] [address] Phone Care Team Providers Care Director Business Integration Name Role Phone Jono Schreiber MD Unavailable Unavailable Allergies, Adverse Reactions, Alerts Substance Reaction Status Criticality Sulfa (Sulfonamide Antibiotics) Nausea/Vomiting Active No Information Medications Medication Instructions Dosage Effective Dates (start - stop) Status Comments methotrexate sodium 2.5 mg tablet take 5 Tablet by oral route every week 12.5 MG - Active folic acid 1 mg tablet take 1 tablet by oral route every morning 1 MG - Active Plaquenil 200 mg tablet take 1 tablet by oral route 2 times every day 200 MG - Active Belbuca [address] 1 film by buccal route 2 times every day against the inside of the cheek, holding in place for 5 seconds, 300 MCG - Active Nature-Throid 16.25 mg tablet take 1 tablet by oral route every day - Active Percocet 7.5 mg-325 mg tablet 5 daily - Active methotrexate sodium 2.5 mg tablet take 5 Tablet by oral route every week 12.5 MG - No Longer Active Procedures Procedure Date Office/Outpatient Visit, Est Routine Venipuncture Rbc Sed Rate, Nonautomated Assay Of Serum Albumin Assay Of Creatinine Transferase (Ast) (Sgot) Alanine Amino (Alt) (Sgpt) CReactive Protein Complete Cbc, Automated Phone E/M By Phys 21-30 Min Phone E/M By Phys 11-20 Min Office/Outpatient Visit, Est Routine Venipuncture Rbc Sed Rate, Nonautomated Assay Of Serum Albumin Assay Of Creatinine Transferase (Ast) (Sgot) Alanine Amino (Alt) (Sgpt) CReactive Protein Complete Cbc WAuto Diff Wbc Office/Outpatient Visit, Est Routine Venipuncture Rbc Sed Rate, Nonautomated Assay Of Serum Albumin Assay Of Creatinine Transferase (Ast) (Sgot) Alanine Amino (Alt) (Sgpt) CReactive Protein Complete Cbc, Automated Office/Outpatient Visit, Est Routine Venipuncture Assay Of Serum Albumin Assay Of Creatinine Transferase (Ast) (Sgot) Alanine Amino (Alt) (Sgpt) Complete Cbc, Automated Office/Outpatient Visit, Est Routine Venipuncture Assay Of Serum Albumin Assay Of Creatinine Transferase (Ast) (Sgot) Alanine Amino (Alt) (Sgpt) Complete Cbc, Automated Office/Outpatient Visit, Est Routine Venipuncture Rbc Sed Rate, Nonautomated CReactive Protein Office/Outpatient Visit, New X-Ray Exam Of Foot 2v XRay Exam Of Hand 3v XRay Exam Of Hand 3v X-Ray Exam Of Foot 2v Routine Venipuncture Specimen Handling Rbc Sed Rate, Nonautomated Assay Of Serum Albumin Assay Of Creatinine Transferase (Ast) (Sgot) Alanine Amino (Alt) (Sgpt) CReactive Protein Complete Cbc, Automated CCP Antibody Rheumatoid Factor, IGM Rheumatoid Factor, IGG, IGA Advance Directives Directive Yes / No Effective Date File Name No Information Encounters Encounter Description Practice Location Reason(s) For Visit Diagnoses Date Provider Providers Copied on Encounter [facility] , [address], [place], [address], [place] tel:[phone] [facility] , No Information 2 Abdoul De La Cruz. [facility] [address], [place], [address], [place]. tel:[phone] Office/Outpa tient Visit, Est [facility] , [address], [place], [address], [place] tel:[phone] [facility] , Rheumatoid arthritis (chief complaint) Seropositive RAHigh risk medication monitoringCo unseling 2 Abdoul De La Cruz. [facility] [address], [place], [address], [place]. tel:[phone] Referring Provider: Jono Be, [facility] [address], [place], [address]. tel:[phone] Phone E/M By Phys 21-30 Min [facility] , [address], [place], [address], [place] tel:[phone] Telehealth Rheumatoid arthritis (chief complaint) Seropositive RAHigh risk medication monitoring 1 Abdoul De La Cruz. [facility] [address], [place], [address], [place]. tel:[phone] Referring Provider: Jono Be, [facility] [address], [place], [address]. tel:[phone] Phone E/M By Phys 11-20 Min [facility] , [address], [place], [address], [place] tel:[phone] Telehealth Rheumatoid arthritis (chief complaint) Seropositive RAHigh risk medication monitoring 0-202 0 Abdoul De La Cruz. [facility] [address], [place], [address], [place]. tel:[phone] Referring Provider: Jono Be, [facility] [address], [place], [address]. tel:[phone] Office/Outpa tient Visit, Est [facility] , [address], [place], [address], [place] tel:[phone] [facility] , Rheumatoid arthritis (chief complaint) Seropositive RAHigh risk medication monitoring 0 4-202 0 Abdoul De La Cruz. [facility] [address], [place], [address], [place]. tel:[phone] Referring Provider: Jono Be, [facility] [address], [place], [address]. tel:[phone] Office/Outpa tient Visit, Est [facility] , [address], [place], [address], [place] tel:[phone] [facility] , Rheumatoid arthritis (chief complaint) Seropositive RAHigh risk medication monitoring 0 5-201 8 Abdoul De La Cruz. [facility] [address], [place], [address], [place]. tel:[phone] Referring Provider: Jono Be, [facility] [address], [place], [address]. tel:[phone] Office/Outpa tient Visit, Est [facility] , [address], [place], [address], [place] tel:[phone] [facility] , Rheumatoid arthritis (chief complaint) Seropositive RAHigh risk medication monitoring 8 Abdoulmike De La Cruz. [facility] [address], [place], [address], [place]. tel:[phone] Referring Provider: Jono Be, [facility] [address], [place], [address]. tel:[phone] Office/Outpa tient Visit, Est [facility] , [address], [place], [address], [place] tel:[phone] [facility] , Rheumatoid arthritis (chief complaint) Seropositive RAHigh risk medication monitoring 0 8 Abdoulmike De La Cruz. [facility] [address], [place], [address], [place]. tel:[phone] Referring Provider: Jono Be, [facility] [address], [place], [address]. tel:[phone] Office/Outpa tient Visit, Est [facility] , [address], [place], [address], [place] tel:[phone] [facility] , Rheumatoid arthritis (chief complaint) Seropositive RAHigh risk medication monitoring Abdoul De La Cruz. [facility] [address], [place], [address], [place]. tel:[phone] Referring Provider: Jono Be, [facility] [address], [place], [address]. tel:[phone] Office/Outpa tient Visit, New [facility] , [address], [place], [address], [place] tel:[phone] [facility] , Joint Pain (chief complaint) Joint pain multiple sites Abdoul De La Cruz. [facility] [address], [place], [address], [place]. tel:[phone] Referring Provider: Jono Be, [facility] [address], [place], [address]. tel:[phone] [facility] , [address], [place], [address], [place] tel:[phone] [facility] , No Information Cleveland Rose. [facility] [address], [place], [address], [place]. tel:[phone] Family History Family Member Type Diagnosis Age At Onset Problem (finding) No family hist ory of Rheumatoid arthritis Payers Payer name Insurance type Covered libertarian ID Melani pope(s) [place] 2021 [id number] Social History Type Description Quantity Date Captured Comments Sex Female Smoking Status No Information Chief Complaint And Reason For Visit No Information Reason For Referral Reason For Referral No Information Plan Of Treatment Date Type Action Status Goal Tobacco cessation counseling completed Goal Tobacco cessation counseling completed Goal Tobacco cessation counseling completed Goal Tobacco cessation counseling completed Goal Tobacco cessation counseling completed Goal Tobacco cessation counseling completed Goal Tobacco cessation counseling completed Goal Tobacco cessation counseling completed Goal Tobacco cessation counseling completed Referral Ordered: XRay Exam Of Hand 3v Bilateral ordered Referral Ordered: X-Ray Exam Of Foot 2v Bilateral ordered History Of Present Illness Encounter Date Complaint History Of Prese nt Illness Rheumatoid arthritis Rheumatoid arthritis Rheumatoid arthritis Rheumatoid arthritis Rheumatoid arthritis Rheumatoid arthritis Rheumatoid arthritis Rheumatoid arthritis Joint Pain Functional Status Date Functional Assessmen t No Information Instructions Date Instruction Additional Infor mation No Information Assessments Type Assessment Date No Information Patient Care Teams Name Effective Dates (start - stop) Status Members No Information
[2023-02-13] MEDS: KETOROLAC 30 MG/ML inj IM (20:34)
== END 2023-02-13 20:55 | disposition home or self-care (01) ==
PROVIDERS: Emergency Provider Family Medicine; PCP Nurse Practitioner Family
DX: M54.16 Radiculopathy, lumbar region (principal)
CPT/HCPCS: 96372; 99283; J1885